=== PATIENT | female | born 1945 | race Caucasian/White ===

== ENCOUNTER 2017-02-13 14:34 | Inpatient (IN) | payer MEDICARE, BC ==
[2017-02-13] MEDS ORDERED: ACETAMINOPHEN 325 MG PO PRN (18:06)
[2017-02-13] MEDS ORDERED: TICAGRELOR 90 MG TAB PO ONE (18:56)
[2017-02-13] MEDS: METOPROLOL TARTRATE 25 MG TAB PO SCH (20:00)
[2017-02-13] MEDS: TICAGRELOR 90 MG TAB PO SCH (20:00)
[2017-02-13] MEDS: MELATONIN 3 MG TAB PO SCH (20:01)
[2017-02-13] MEDS: GABAPENTIN 100 MG CAP PO SCH (20:01)
[2017-02-13] MEDS: SIMVASTATIN 20 MG TAB PO SCH (20:02)
[2017-02-14] MEDS: METOPROLOL TARTRATE 25 MG TAB PO SCH ×2 (09:10→20:57)
[2017-02-14] MEDS: LISINOPRIL 20 MG TAB PO SCH (09:11)
[2017-02-14] MEDS: CITALOPRAM 20 MG TAB PO SCH (09:11)
[2017-02-14] MEDS: MULTIVITAMIN2 1 EA TAB PO SCH (09:11)
[2017-02-14] MEDS: TICAGRELOR 90 MG TAB PO SCH ×2 (09:52→20:56)
[2017-02-14] MEDS: MELATONIN 3 MG TAB PO SCH (20:58)
[2017-02-14] MEDS: GABAPENTIN 100 MG CAP PO SCH (20:58)
[2017-02-14] MEDS: SIMVASTATIN 20 MG TAB PO SCH (20:59)
[2017-02-15 07:29] LABS: BASOPHILS % (AUTO) 1 % (0-3); EOSINOPHILS % (AUTO) 1 % (0-9); HEMATOCRIT 32 % (35-47); MEAN CORPUSCULAR HGB CONC 35.6 gm/dl (32.0-36.0); MEAN CORPUSCULAR VOLUME 87 fL (81-99); MONOCYTES % (AUTO) 17.4 % (0-12); NEUTROPHILS % (AUTO) 50.4 % (37-80)
[2017-02-15 07:32] LABS: CALCIUM 8.4 mg/dl (8.5-10.1); POTASSIUM 4.2 mMol/L (3.5-5.1)
[2017-02-15] MEDS: MULTIVITAMIN2 1 EA TAB PO SCH (09:07)
[2017-02-15] MEDS: TICAGRELOR 90 MG TAB PO SCH ×2 (09:07→20:13)
[2017-02-15] MEDS: LISINOPRIL 20 MG TAB PO SCH (09:07)
[2017-02-15] MEDS: METOPROLOL TARTRATE 25 MG TAB PO SCH ×2 (09:07→20:13)
[2017-02-15] MEDS: CITALOPRAM 20 MG TAB PO SCH (09:07)
[2017-02-15] MEDS: MELATONIN 3 MG TAB PO SCH (20:14)
[2017-02-15] MEDS: GABAPENTIN 100 MG CAP PO SCH (20:14)
[2017-02-15] MEDS: SIMVASTATIN 20 MG TAB PO SCH (20:15)
[2017-02-16] MEDS: CITALOPRAM 20 MG TAB PO SCH (08:48)
[2017-02-16] MEDS: TICAGRELOR 90 MG TAB PO SCH ×2 (08:48→21:39)
[2017-02-16] MEDS: LISINOPRIL 20 MG TAB PO SCH (08:49)
[2017-02-16] MEDS: MULTIVITAMIN2 1 EA TAB PO SCH (08:49)
[2017-02-16] MEDS: METOPROLOL TARTRATE 25 MG TAB PO SCH ×2 (08:49→21:38)
[2017-02-16 14:23] LABS: CALCIUM 8.7 mg/dl (8.5-10.1); POTASSIUM 3.8 mMol/L (3.5-5.1)
[2017-02-16] MEDS: MELATONIN 3 MG TAB PO SCH (21:37)
[2017-02-16] MEDS: GABAPENTIN 100 MG CAP PO SCH (21:37)
[2017-02-16] MEDS: SIMVASTATIN 20 MG TAB PO SCH (21:39)
[2017-02-17] MEDS: CITALOPRAM 20 MG TAB PO SCH (09:38)
[2017-02-17] MEDS: TICAGRELOR 90 MG TAB PO SCH ×2 (09:38→20:35)
[2017-02-17] MEDS: METOPROLOL TARTRATE 25 MG TAB PO SCH ×2 (09:38→20:37)
[2017-02-17] MEDS: LISINOPRIL 20 MG TAB PO SCH (09:39)
[2017-02-17] MEDS: MULTIVITAMIN2 1 EA TAB PO SCH (09:39)
[2017-02-17] MEDS: GABAPENTIN 100 MG CAP PO SCH (20:36)
[2017-02-17] MEDS: MELATONIN 3 MG TAB PO SCH (20:36)
[2017-02-17] MEDS: SIMVASTATIN 20 MG TAB PO SCH (20:37)
[2017-02-18] MEDS: TICAGRELOR 90 MG TAB PO SCH ×2 (08:25→20:51)
[2017-02-18] MEDS: CITALOPRAM 20 MG TAB PO SCH (08:25)
[2017-02-18] MEDS: METOPROLOL TARTRATE 25 MG TAB PO SCH ×2 (08:25→20:52)
[2017-02-18] MEDS: LISINOPRIL 20 MG TAB PO SCH (08:26)
[2017-02-18] MEDS: MULTIVITAMIN2 1 EA TAB PO SCH (08:26)
[2017-02-18] MEDS: SIMVASTATIN 20 MG TAB PO SCH (20:50)
[2017-02-18] MEDS: MELATONIN 3 MG TAB PO SCH (20:51)
[2017-02-18] MEDS: GABAPENTIN 100 MG CAP PO SCH (20:51)
[2017-02-19] MEDS: TICAGRELOR 90 MG TAB PO SCH ×2 (08:36→20:00)
[2017-02-19] MEDS: CITALOPRAM 20 MG TAB PO SCH (08:39)
[2017-02-19] MEDS: LISINOPRIL 20 MG TAB PO SCH (08:40)
[2017-02-19] MEDS: MULTIVITAMIN2 1 EA TAB PO SCH (08:40)
[2017-02-19] MEDS: METOPROLOL TARTRATE 25 MG TAB PO SCH ×2 (13:58→20:00)
[2017-02-19] MEDS: SIMVASTATIN 20 MG TAB PO SCH (20:00)
[2017-02-19] MEDS: GABAPENTIN 100 MG CAP PO SCH (20:00)
[2017-02-19] MEDS: MELATONIN 3 MG TAB PO SCH (20:01)
[2017-02-20] MEDS: TICAGRELOR 90 MG TAB PO SCH ×2 (08:36→20:41)
[2017-02-20] MEDS: LISINOPRIL 20 MG TAB PO SCH (08:36)
[2017-02-20] MEDS: MULTIVITAMIN2 1 EA TAB PO SCH (08:36)
[2017-02-20] MEDS: CITALOPRAM 20 MG TAB PO SCH (08:36)
[2017-02-20] MEDS: METOPROLOL TARTRATE 25 MG TAB PO SCH ×2 (08:41→20:40)
[2017-02-20] MEDS: SIMVASTATIN 20 MG TAB PO SCH (20:40)
[2017-02-20] MEDS: MELATONIN 3 MG TAB PO SCH (20:41)
[2017-02-20] MEDS: GABAPENTIN 100 MG CAP PO SCH (20:41)
[2017-02-21 08:00] VITALS: RESP 20
[2017-02-21] MEDS: TICAGRELOR 90 MG TAB PO SCH ×2 (09:01→20:08)
[2017-02-21] MEDS: LISINOPRIL 20 MG TAB PO SCH (09:01)
[2017-02-21] MEDS: MULTIVITAMIN2 1 EA TAB PO SCH (09:02)
[2017-02-21] MEDS: METOPROLOL SUCCINATE 50 MG TER PO SCH (09:02)
[2017-02-21] MEDS: CITALOPRAM 20 MG TAB PO SCH (09:04)
[2017-02-21] MEDS: GABAPENTIN 100 MG CAP PO SCH (20:08)
[2017-02-21] MEDS: MELATONIN 3 MG TAB PO SCH (20:08)
[2017-02-21] MEDS: SIMVASTATIN 20 MG TAB PO SCH (20:09)
[2017-02-22] MEDS: CITALOPRAM 20 MG TAB PO SCH (09:33)
[2017-02-22] MEDS: TICAGRELOR 90 MG TAB PO SCH ×2 (09:33→20:00)
[2017-02-22] MEDS: MULTIVITAMIN2 1 EA TAB PO SCH (09:34)
[2017-02-22] MEDS: LISINOPRIL 20 MG TAB PO SCH (09:35)
[2017-02-22] MEDS: METOPROLOL SUCCINATE 50 MG TER PO SCH (09:36)
[2017-02-22] MEDS: MELATONIN 3 MG TAB PO SCH (20:00)
[2017-02-22] MEDS: SIMVASTATIN 20 MG TAB PO SCH (20:00)
[2017-02-22] MEDS: GABAPENTIN 100 MG CAP PO SCH (20:00)
[2017-02-23 07:27] VITALS: BP 113/69; PULSE 57; TEMP 96.8; O2SAT 93
[2017-02-23] MEDS: CITALOPRAM 20 MG TAB PO SCH (08:28)
[2017-02-23] MEDS: TICAGRELOR 90 MG TAB PO SCH (08:28)
[2017-02-23] MEDS: METOPROLOL SUCCINATE 50 MG TER PO SCH (08:29)
[2017-02-23] MEDS: MULTIVITAMIN2 1 EA TAB PO SCH (08:29)
[2017-02-23] MEDS: LISINOPRIL 20 MG TAB PO SCH (08:30)
== END 2017-02-23 10:10 | disposition home or self-care (01) | DRG 57 ==
LOC: ACUTE CARE 16:10
PROVIDERS: ADMIT Family Medicine; ATTEND Family Medicine
PROC: [UNRECOGNIZED PROCEDURE] (principal; 2017-02-14)
PROC: F01ZDZZ Gait and/or Balance Assessment (ICD-10-PCS; 2017-02-15)
PROC: F01ZBZZ Bed Mobility Assessment (ICD-10-PCS; 2017-02-15)
PROC: F01ZCZZ Transfer Assessment (ICD-10-PCS; 2017-02-15)
DX: I69.322 Dysarthria following cerebral infarction (principal); I69.391 Dysphagia following cerebral infarction; I10 Essential (primary) hypertension; R91.1 Solitary pulmonary nodule; R91.8 Other nonspecific abnormal finding of lung field
CPT/HCPCS: 36415; 71010; 71260; 74170; 80048; 85025; 93005; Q9967

== ENCOUNTER 2017-03-18 18:34 | Emergency (ER) | payer MEDICARE, BC ==
[2017-03-18 19:11] VITALS: RESP 28
[2017-03-18 19:27] LABS: BASOPHILS % (AUTO) 0 % (0-3); EOSINOPHILS % (AUTO) 0 % (0-9); HEMATOCRIT 36 % (35-47); MEAN CORPUSCULAR HGB CONC 33.1 gm/dl (32.0-36.0); MEAN CORPUSCULAR VOLUME 91 fL (81-99); MONOCYTES % (AUTO) 2.9 % (0-12); NEUTROPHILS % (AUTO) 88.8 % (37-80)
[2017-03-18 19:34] LABS: APPEARANCE,URINE Clear; BILIRUBIN,URINE 1+ (NEGATIVE); COLOR,URINE Yellow; GLUCOSE, URINE (UA) NEGATIVE (NEGATIVE); KETONES,URINE 2+ (NEGATIVE); LEUKOCYTE ESTERASE ,URINE NEGATIVE (NEGATIVE); NITRATE,URINE NEGATIVE (NEGATIVE); OCCULT BLOOD,URINE 2+ (NEG-TRACE); UROBILINOGEN,URINE 0.2 (0.2-1.0 EU)
[2017-03-18 19:40] LABS: ICTOTEST,URINE NEGATIVE (NEGATIVE); WBC,URINE 0-3 (0-5AV/HPF)
[2017-03-18 19:42] LABS: ALBUMIN 3.4 gm/dl (3.4-5.0); CALCIUM 9.1 mg/dl (8.5-10.1); POTASSIUM 4.3 mMol/L (3.5-5.1)
[2017-03-18] MEDS ORDERED: SODIUM CHLORIDE 0.9% 1000ML 1,000 ML IV ONE (19:49)
[2017-03-18] MEDS ORDERED: ONDANSETRON HCL 4 MG/2 ML SOL IV ONE (19:50)
[2017-03-18] MEDS ORDERED: ONDANSETRON HCL 4 MG/2 ML SOL ONE (20:53)
[2017-03-18 22:24] VITALS: BP 107/59; PULSE 60; TEMP 97.3; O2SAT 94
== END 2017-03-18 22:23 | disposition home or self-care (01) | DRG 392 ==
LOC: ED 18:34
DX: R10.9 Unspecified abdominal pain (principal); E86.0 Dehydration; K59.00 Constipation, unspecified; R11.2 Nausea with vomiting, unspecified
CPT/HCPCS: 36415; 74020; 80053; 81001; 85025; 96365; 96374; 99284; 99285; J2405

== ENCOUNTER 2017-05-12 09:39 | Emergency (ER) | payer MEDICARE, BC ==
[2017-05-12 09:52] VITALS: BP 118/78; PULSE 72; RESP 20; TEMP 97.6; O2SAT 98
== END 2017-05-12 10:51 | disposition home or self-care (01) | DRG 153 ==
LOC: ED 09:39
DX: J11.1 Influenza due to unidentified influenza virus with other respiratory manifestations (principal)
CPT/HCPCS: 71046; 99282

== ENCOUNTER 2017-09-23 06:25 | Emergency (ER) | payer MEDICARE, BC ==
[2017-09-23 06:34] VITALS: TEMP 97.3
[2017-09-23 07:31] VITALS: BP 136/68; PULSE 54; RESP 24; O2SAT 97
== END 2017-09-23 07:35 | disposition home or self-care (01) | DRG 156 ==
LOC: ED 06:25
DX: R09.81 Nasal congestion (principal); I10 Essential (primary) hypertension
CPT/HCPCS: 71046; 99282

== ENCOUNTER 2018-03-22 18:48 | Emergency (ER) | payer MEDICARE, BC ==
[2018-03-22 18:48] VITALS: O2SAT 97
[2018-03-22 19:10] VITALS: RESP 18; TEMP 96.7
[2018-03-22 19:47] VITALS: BP 129/73; PULSE 60
== END 2018-03-22 20:10 | disposition home or self-care (01) | DRG 153 ==
LOC: ED 18:48
DX: J02.9 Acute pharyngitis, unspecified (principal)
CPT/HCPCS: 87430; 99282